=== PATIENT | male | born 1985 | race Hispanic/Latino ===

== ENCOUNTER 2016-08-15 02:45 | Emergency (ER) | payer SELFPAY ==
[2016-08-15 04:03] VITALS: BP 115/64
[2016-08-15 05:00] LABS: Hematocrit 41.9 % (35.5-45.6); Hemoglobin 14.3 gm/dl (11.8-15.2); Mean Corpuscular HGB Conc 34 % (32-34); Mean Corpuscular Hemoglobin 30 pg (28-32); Mean Corpuscular Volume 87 fl (84-94); Platelet Count 305 K/mm3 (140-440); Red Blood Count 4.83 M/mm3 (3.65-5.03); Red Cell Distribution Width 13.6 % (13.2-15.2); White Blood Count 8.7 K/mm3 (4.5-11.0)
[2016-08-15 05:20] LABS: Alanine Aminotransferase 13 units/L (7-56); Albumin 4.3 g/dL (3.9-5); Albumin/Globulin Ratio 1.7 %; Alkaline Phosphatase 89 units/L (35-129); Anion Gap 16 mmol/L; BUN/Creatinine Ratio 25.71; Blood Urea Nitrogen 18 mg/dL (9-20); Calcium 9.8 mg/dL (8.4-10.2); Carbon Dioxide 27 mmol/L (22-30); Glucose 93 mg/dL (75-100); Lipase 32 units/L (13-60); Potassium 4.6 mmol/L (3.6-5.0); Sodium 136 mmol/L (137-145); Total Protein 6.9 g/dL (6.3-8.2)
[2016-08-15 05:54] LABS: Basophils % (Manual) 0 % (0.0-1.8); Blastocytes % (Manual) 0 %
[2016-08-15 05:55] LABS: Diff Status Complete; Large Platelets Rare
--- NOTE | 2016-08-17 00:34 | ED Elopement Review ---
ED Pt Elopement review - Results review Lab results: Laboratory Tests 08/15/16 08/15/16 04:42 04:42 WBC 8.7 RBC 4.83 Hgb 14.3 Hct 41.9 MCV 87 MCH 30 MCHC 34 RDW 13.6 Plt Count 305 [place] % (Auto) Bank Representative Add Manual Diff Complete Total Counted 100 Seg Neuts % (Manual) 64.0 Band Neutrophils % 1.0 Lymphocytes % (Manual) 14.0 Reactive Lymphs % (Man) 0 Monocytes % (Manual) 14.0 H Eosinophils % (Manual) 7.0 H Basophils % (Manual) 0 Metamyelocytes % 0 Myelocytes % 0 Promyelocytes % 0 Blast Cells % 0 Nucleated RBC % Not Reportable Seg Neutrophils # Man 5.6 Band Neutrophils # 0.1 Lymphocytes # (Manual) 1.2 Abs React Lymphs (Man) 0.0 Monocytes # (Manual) 1.2 H Eosinophils # (Manual) 0.6 H Basophils # (Manual) 0.0 Metamyelocytes # 0.0 Myelocytes # 0.0 Promyelocytes # 0.0 Blast Cells # 0.0 WBC Morphology Not Reportable Hypersegmented Neuts Not Reportable Hyposegmented Neuts Not Reportable Hypogranular Neuts Not Reportable Smudge Cells Not Reportable Toxic Granulation Not Reportable Toxic Vacuolation Not Reportable Dohle Bodies Not Reportable Pelger-Huet Anomaly Not Reportable Mary Rods Not Reportable Platelet Estimate Appears normal Clumped Platelets Not Reportable Plt Clumps, EDTA Not Reportable Large Platelets Rare Giant Platelets Not Reportable Platelet Satelliting Not Reportable Plt Morphology Comment Not Reportable RBC Morphology Not Reportable Dimorphic RBCs Not Reportable Polychromasia Not Reportable Hypochromasia Not Reportable Poikilocytosis Not Reportable Anisocytosis Not Reportable Microcytosis Not Reportable Macrocytosis Not Reportable Spherocytes Not Reportable Pappenheimer Bodies Not Reportable Sickle Cells Not Reportable Target Cells Not Reportable Tear Drop Cells Not Reportable Ovalocytes Not Reportable Helmet Cells Not Reportable Funez-[place] Bodies Not Reportable [place] Rings Not Reportable Ck Cells Not Reportable Bite Cells Not Reportable Crenated Cell Not Reportable Elliptocytes Not Reportable Acanthocytes (Spur) Not Reportable Rouleaux Not Reportable Hemoglobin C Crystals Not Reportable Schistocytes Not Reportable Malaria parasites Not Reportable Sukh Bodies Not Reportable Hem Pathologist Commnt No Sodium 136 L Potassium 4.6 Chloride 98.0 Carbon Dioxide 27 Anion Gap 16 BUN 18 Creatinine 0.7 L Estimated GFR > 60 BUN/Creatinine Ratio 25.71 Glucose 93 Calcium 9.8 Total Bilirubin 0.30 AST 12 ALT 13 Alkaline Phosphatase 89 Total Protein 6.9 Albumin 4.3 Albumin/Globulin Ratio 1.7 Lipase 32 - Call Back decision Pt Call Back Decision: No action required
== END 2016-08-15 04:50 | disposition left against medical advice (07) ==
LOC: ED 02:45
DX: R10.9 Unspecified abdominal pain (principal); Z53.21 Procedure and treatment not carried out due to patient leaving prior to being seen by health care provider
CPT/HCPCS: 36415; 80053; 83690; 85007; 85025